=== PATIENT | male | born 1975 | race Caucasian/White ===

== ENCOUNTER 2024-02-01 16:53 | Emergency (ER) | payer MEDICAID ==
[~2024-02-01] VITALS: Ht 175.3 cm; Wt 113.0 kg
[2024-02-01 16:59] VITALS: BP 216/134; PULSE 100; TEMP 98; O2SAT 98
[2024-02-01] MEDS ORDERED: ketorolac trometh inj. 60 MG/2 ML VIAL IM ONE (18:15)
[2024-02-01] MEDS ORDERED: NAPR-996 PO (18:16)
[2024-02-01] MEDS ORDERED: GABA300C PO (18:16)
[2024-02-01] MEDS ORDERED: HYDR-3965 PO (18:55)
[2024-02-01 19:11] VITALS: RESP 18
[2024-02-01] MEDS: ketorolac trometh. 30mg/ml inj. IM ONE (19:11)
== END 2024-02-01 19:15 | disposition home or self-care (01) ==
LOC: ER 16:53
DX: M54.30 Sciatica, unspecified side (principal); Z79.899 Other long term (current) drug therapy
CPT/HCPCS: 96372; 99283; J1885

== ENCOUNTER 2025-08-03 11:43 | Emergency (ER) | payer MEDICAID ==
[~2025-08-03] VITALS: Ht 182.9 cm; Wt 98.0 kg
[~2025-08-03 11:43] MED LIST: GABA300C PO; NAPR-1168 PO
--- NOTE | 2025-08-03 11:52 | Physician Documentation ---
History of Present Illness General Stated Complaint: INFECTION Time Seen by MD: 11:52 History of Present Illness Initial Comments The patient is a 50-year-old male who has has a G-tube for a year. The patient's nurse told the patient that his G-tube site looked infected. The patient called EMS to have his G-tube evaluated and to have a swallow study that is nurse stayed that he needed. Patient denies any fevers or chills. Patient states the tube has been in since a year ago. Patient states he has a used a since April. The patient states that he does not know the tube in any longer. Medication Reconciliation Allergies: Coded Allergies: No Known Allergies (Unverified , 02/01/24) Scheduled Gabapentin (Neurontin), 1 CAP PO HS Naproxen (Naproxen), 1 TAB PO Q12H Omeprazole (Prilosec), 1 CAP PO QAM Review of Systems All Other Systems at this time: Reviewed and Negative Physical Exam Physical Exam Physical Exam VITALS: Reviewed and as above. GENERAL: Alert, no apparent distress. HEENT: Normocephalic, atraumatic, PERRL, EOMI, dry mucosa, no erythema RESPIRATORY: Lungs clear, normal breath sounds, no respiratory distress. CHEST: No accessory muscle use, no retractions CV: Regular rate, rhythm, no edema, no murmur, No: JVD GI: Soft, non-tender, bowels sounds present, no rebound, guarding, or rigidity a slight erythema around a right upper abdomen G-tube site erythema extends proximally 1 cm out from the G-tube site no fluctuance BACK: No CVA tenderness, or swelling MUSCULOSKELETAL: No deformities, no edema SKIN: Warm and dry, no rash NEURO: Oriented x4, No motor or sensory deficit PSYCH: Normal mood and affect, no agitation Progress Results/Orders Results/Orders Orders - [facility],NIGHAT Triplett MD [facility]) (08/03/25 ) Wound Care Orders (08/03/25 13:59) Vital Signs 08/03/25 08/03/25 08/03/25 08/03/25 11:47 11:54 13:22 14:13 Temp 98.5 98.5 98.5 Pulse 84 65 Resp 16 16 16 B/P (MAP) 120/91 134/101 (112) Pulse Ox 97 97 Medical Decision Making Findings The patient is a 50-year-old male who has has a G-tube in the patient is requesting his G-tube be removed, he has not use the G-tube since April, he was requesting a swallow study that he has been told he should get we are unable to get a swallow study. The patient has been tolerating orals for multiple months and requested the G-tube be removed. I removed the G-tube. The patient will be discharged. Prior hospitalizations has been reviewed. The patient's pulse oximetry was interpreted as normal and adequate. The patient will be discharged. Departure Time of Disposition: 13:55 Disposition: 01 HOME / SELF CARE / HOMELESS Impression: Primary Impression: G-tube removal Additional Instructions: Follow up with your healthcare provider, the site should stopped draining within two weeks if you develop redness swelling fevers or it does not stop draining then returned to the emergency department. Referrals: NO PRIMARY CARE PROVIDER (PCP) Prescriptions Omeprazole (Prilosec) 40 Mg Capsule 1 CAP PO QAM, #30 CAP may substitute any other PPI at daily higher dosage Prov: NIGHAT RICE MD 08/03/25 Signature Scribe Signature: no scribe Attestation: The note accurately reflects work and decisions made by me.Nighat Rice MD 08/06/25 09:30 NIGHAT RICE MD Aug 03, 2025 11:52
[2025-08-03 13:22] VITALS: BP 134/101; PULSE 65; RESP 16; O2SAT 97
[2025-08-03] MEDS ORDERED: OMEP40CA21 PO (14:06)
[2025-08-03 14:13] VITALS: TEMP 98.5
== END 2025-08-03 14:37 | disposition home or self-care (01) ==
LOC: ER 11:44
DX: Z43.1 Encounter for attention to gastrostomy (principal); Z79.899 Other long term (current) drug therapy
CPT/HCPCS: 99283; A6449